=== PATIENT | female | born 1970 | race Caucasian/White ===

== ENCOUNTER 2018-03-21 04:37 | Emergency (ER) | payer OTHER | END 2018-03-21 05:58 | disposition other institution (70) | LOC: ED 04:37 | DX: Z02.89 Encounter for other administrative examinations (principal) ==

== ENCOUNTER 2018-03-21 04:37 | Emergency (ER) | payer SELFPAY ==
[~2018-03-21] VITALS: Ht 160 cm; Wt 63.5 kg
[2018-03-21 04:44] VITALS: Ht 160 cm; Wt 63.5 kg
[2018-03-21 05:58] VITALS: BP 135/70
== END 2018-03-21 05:58 | disposition other institution (70) ==
LOC: ED 04:37
DX: S16.1XXA Strain of muscle, fascia and tendon at neck level, initial encounter (principal); S30.0XXA Contusion of lower back and pelvis, initial encounter; F31.9 Bipolar disorder, unspecified; V43.52XA Car driver injured in collision with other type car in traffic accident, initial encounter; Y93.I9 Activity, other involving external motion; Y92.89 Other specified places as the place of occurrence of the external cause; Y99.8 Other external cause status
CPT/HCPCS: J1885